=== PATIENT | male | born 1955 ===

== ENCOUNTER 2016-12-15 00:21 | Emergency (ER) | payer SELFPAY ==
[2016-12-15 00:58] VITALS: TEMP 98.7
[2016-12-15] MEDS ORDERED: DiphenhydrAMINE 50 mg/ml Inj IV STA (01:24)
--- NOTE | 2016-12-15 01:37 | ED PDOC ---
HPI: Allergic Reaction Time Seen by Provider: 12/15/16 00:57 Chief Complaint (Nursing): Shortness Of Breath Chief Complaint (Provider): Allergic reaction, shortness of breath History Per: Patient History/Exam Limitations: no limitations Onset/Duration Of Symptoms: Mins Current Symptoms Are (Timing): Still Present Possible Cause: Unknown, MAYRA Inhibitor Additional Complaint(s): The pt is a 61yo male, PMHx of HTN, DM, asthma, presents to the ED for evaluation of urticarial rash all over his body associated with swollen lips. Pt reports he is unsure of the cause of the reaction; denies any bug bites, or eating new foods. Of note, pt reports he had recently finished a course of antibioitcs 4 days ago. Pt denies any tongue swelling, difficulty breathing. At present, he offers no additional medical complaints. Past Medical History Reviewed: Historical Data, Nursing Documentation, Vital Signs Vital Signs: Last Vital Signs Temp 98.7 F 12/15/16 00:53 Pulse 117 H 12/15/16 00:53 Resp 18 12/15/16 00:53 BP 119/65 12/15/16 00:53 Pulse Ox 98 12/15/16 00:53 - Medical History PMH: Asthma, GERD, HTN, Pneumonia (25 yrs ago), Sleep Apnea - Surgical History Surgical History: Hernia Repair (x3) - Family History Family History: States: Unknown Family Hx - Social History Current smoker - smoking cessation education provided: No Alcohol: None Drugs: Denies - Immunization History Hx Tetanus Toxoid Vaccination: No Hx Influenza Vaccination: No Hx Pneumococcal Vaccination: No - Home Medications Home Medications: Ambulatory Orders Medication Instructions Recorded Ibuprofen 600 mg PO Q6 #20 tab 04/16/14 Sulfamethoxazole/Trimethopri 1 tab PO BID #20 tab 04/16/14 [Bactrim Ds 800 mg-160 mg] oxyCODONE/Acetaminophen [Percocet 1 tab PO QID PRN #20 tab 04/16/14 5/325 mg Tab] Albuterol Sulfate [Proair Hfa] 2 puff IH Q4H PRN #1 unit 08/04/15 predniSONE [predniSONE Tab] 40 mg PO DAILY #10 tab 08/04/15 Prednisone 50 mg PO DAILY #4 tablet 12/15/16 - Allergies Allergies/Adverse Reactions: Allergies Allergy/AdvReac Type Severity Reaction Status Date / Time Penicillins Allergy RASH Verified 12/15/16 00:53 Review of Systems ROS Statement: Except As Marked, All Systems Reviewed And Found Negative ENT: Positive for: Mouth Swelling (lip swelling). Negative for: Throat Swelling Respiratory: Negative for: Shortness of Breath Skin: Positive for: Rash (b/l arms, neck) Physical Exam - Reviewed Nursing Documentation Reviewed: Yes Vital Signs Reviewed: Yes - Physical Exam Appears: Positive for: Well, Non-toxic, No Acute Distress Head Exam: Positive for: ATRAUMATIC, NORMAL INSPECTION, NORMOCEPHALIC Skin: Positive for: Normal Color, Warm, Rash (hives noted on trunk, arms and neck) Eye Exam: Positive for: Normal appearance, EOMI, PERRL ENT: Positive for: Other (mild lip swellin, no tongue or throat swelling noted.) Neck: Positive for: Normal, Supple Cardiovascular/Chest: Positive for: Regular Rate, Rhythm Respiratory: Positive for: Normal Breath Sounds. Negative for: Wheezing, Respiratory Distress Extremity: Positive for: Normal ROM Neurologic/Psych: Positive for: Alert, Oriented - ECG O2 Sat by Pulse Oximetry: 98 (rA) Pulse Ox Interpretation: Normal Disposition - Clinical Impression Clinical Impression: Angioedema, Urticaria - Patient ED Disposition Is Patient to be Admitted: No Doctor Will See Patient In The: Office Counseled Patient/Family Regarding: Studies Performed, Diagnosis, Need For Followup - Disposition Referrals: [facility] [Outside] Disposition: Routine/Home Disposition Time: 05:45 Condition: GOOD Additional Instructions: Take benadryl for itching. Return for worsening. Follow up with your PCP in 2-3 days. Prescriptions: Prednisone 50 mg PO DAILY #4 tablet Instructions: Urticaria (ED) Medical Decision Making Medical Decision Making: Time: 0115 Impression: Facial angioedema, urticarial allergy reaction Differential: Allergy due to unknown cuase, less like MAYRA induced angioedema Plan: -- Benadryl 50 mg iVP -- Pepcid 20 mg IVP -- Medrol 125 mg IVP -- Reassess 1.45 Pt felt dizzy and became hypotensive after IV bolus of benadryl+pepcid+ solumedrol after he got up from the bed and sat on the chair. Pt felt better after lying flat. Rash resolved. No lip or throat swelling. 0500 Pt is significantly improve. BP has been stable in ED. Pt only reports mild itching. Ambulated without dizziness. Scribe Attestation: Documented by Jennifer Velásquez acting as a scribe for Fabricio Fernandez MD. Provider Attestation: All medical record entries made by the Scribe were at my direction and personally dictated by me. I have reviewed the chart and agree that the record accurately reflects my personal performance of the history, physical exam, medical decision making, and the department course for this patient. I have also personally directed, reviewed, and agree with the discharge instructions and disposition.
[2016-12-15] MEDS ORDERED: Albuterol 0.083% Inhal Sol (2.5 mg/3 mL) UD INH STA (03:02)
[2016-12-15 03:16] VITALS: RESP 15
[2016-12-15 05:45] VITALS: O2SAT 98
[2016-12-15 06:07] VITALS: BP 105/63; PULSE 108
--- NOTE | 2016-12-19 11:37 | CARD ---
APPROVED REPORT EKG Measurement Heart [id number] <Conclusion> Sinus tachycardia Nonspecific ST abnormality Abnormal ECG
== END 2016-12-15 06:27 | disposition home or self-care (01) ==
LOC: H.ER 00:21
DX: T78.3XXA Angioneurotic edema, initial encounter (principal); L50.9 Urticaria, unspecified; I10 Essential (primary) hypertension; E11.9 Type 2 diabetes mellitus without complications
CPT/HCPCS: 96374; 96375; 99283; J1200; J2930